=== PATIENT | female | born 1975 | race Caucasian/White ===

== ENCOUNTER 2017-01-24 10:09 | Emergency (ER) | payer MEDICAID, MEDICARE ==
[~2017-01-24] VITALS: Ht 152.4 cm; Wt 67.0 kg
[2017-01-24] MEDS ORDERED: MAGNESIUM/ALUMINUM HYDROXIDE/SIMETHICONE 30ML UDC PO STA (11:11)
[2017-01-24] MEDS ORDERED: ACETAMINOPHEN 325MG TABLET PO STA (11:11)
[2017-01-24] MEDS ORDERED: ONDANSETRON 4MG ODT PO STA (11:11)
[2017-01-24 11:27] LABS: BASOPHILS % 1.2 % (0.0-2.0); DIFFERENTIAL COMMENT 0; HEMATOCRIT. 36.9 % (36.0-48.0); HEMOGLOBIN. 12.3 g/dL (12.0-16.0); LYMPHOCYTES % 31.6 % (20.0-50.0); MEAN CORPUSCULAR HEMOGLOBIN 26.3 pg (28.0-32.0); MEAN CORPUSCULAR HGB CONC 33.3 g/dL (31.0-37.0); MEAN CORPUSCULAR VOLUME 78.9 fL (81.0-99.0); MEAN PLATELET VOLUME 8.7 fl (7.4-10.4); MONOCYTES % 7.2 % (2.0-8.0); PLATELET 260 x1000/uL (130-400); RED BLOOD CELL COUNT 4.68 mill/uL (4.2-5.4); RED CELL DISTRIBUTION WIDTH 14.6 % (11.6-14.6); WHITE BLOOD COUNT 8.4 x1000/uL (4.5-11.0)
[2017-01-24 11:29] LABS: CLARITY URINE CLEAR (CLEAR); COLOR URINE YELLOW (YELLOW); GLUCOSE URINE NEGATIVE (NEGATIVE); KETONES URINE TRACE (NEGATIVE); LEUKOCYTE ESTERASE URINE TRACE (NEGATIVE); NITRITE URINE NEGATIVE (NEGATIVE); OCCULT BLOOD URINE NEGATIVE (NEGATIVE); PH URINE 5.5 (4.5-8.0); PROTEIN URINE NEGATIVE (NEGATIVE); SPECIFIC GRAVITY URINE 1.028 (1.005-1.030); UROBILINOGEN URINE 0.2 E.U./dL (0.2-1.0)
[2017-01-24 11:34] LABS: PROTHROMBIN TIME 10.7 sec
[2017-01-24 11:42] LABS: ALANINE AMINOTRANSFERASE 18 IU/L (13-61); ANION GAP 11; CALCIUM 8.7 mg/dL (8.5-10.1); CARBON DIOXIDE 28 mEq/L (21-32); CHLORIDE 106 mEq/L (98-107); INDEX HEMOLYSI 1 (1-3); INDEX ICTERIC 1 (1-4); INDEX LIPEMIC 1 (1-3); LIPASE 171 IU/L (73-393); UREA NITROGEN BLOOD 14 mg/dL (7-21); eGFR > 60 mL/min (>60)
[2017-01-24 11:50] LABS: MUCUS URINE 1+ /lpf (< = 2+); SQUAMOUS EPITHELIAL CELL URINE 2+ /lpf (RARE/1+)
[2017-01-24 11:51] LABS: BACTERIA URINE TRACE; RBC URINE NONE SEEN /hpf (0-2); WBC URINE 0-2 /hpf (0-2)
[2017-01-24 12:11] LABS: HCG SCREEN NEGATIVE
[2017-01-24 13:02] VITALS: BP 112/74
== END 2017-01-24 13:02 | disposition home or self-care (01) ==
LOC: ER 11:33
DX: N39.0 Urinary tract infection, site not specified (principal); R10.13 Epigastric pain
CPT/HCPCS: 36415; 80053; 81001; 83690; 84703; 85025; 85610; 99284; Q0162

== ENCOUNTER 2017-11-03 18:54 | Emergency (ER) | payer MEDICARE, OTHER ==
[~2017-11-03] VITALS: Ht 152.4 cm; Wt 69.0 kg
[2017-11-03] MEDS ORDERED: LIDOCAINE HCL 1% 20ML VIAL (Pyxis) INJ MC ONE (19:15)
[2017-11-03] MEDS ORDERED: KETOROLAC 30MG/ML VIAL IM ONE (19:15)
[2017-11-03] MEDS ORDERED: TETANUS, DIPHTHERIA, PERTUSSIS VAC/PF 0.5ML (>7YR OLD) IM ONE (19:15)
[2017-11-03] MEDS ORDERED: BACITRACIN ZINC OINT UDPKT TOP ONE ×2 (19:15→21:45)
[2017-11-03 20:02] LABS: HCG SCREEN NEGATIVE
[2017-11-03 22:00] VITALS: BP 124/70
== END 2017-11-03 22:00 | disposition home or self-care (01) ==
LOC: ER 18:57
DX: S61.210A Laceration without foreign body of right index finger without damage to nail, initial encounter (principal); S61.212A Laceration without foreign body of right middle finger without damage to nail, initial encounter; S61.214A Laceration without foreign body of right ring finger without damage to nail, initial encounter; S61.216A Laceration without foreign body of right little finger without damage to nail, initial encounter; W26.0XXA Contact with knife, initial encounter; Y93.G3 Activity, cooking and baking; Y92.000 Kitchen of unspecified non-institutional (private) residence as the place of occurrence of the external cause; Y99.8 Other external cause status
CPT/HCPCS: 12002; 73110; 73130; 84703; 90471; 90715; 96372; 99285; J1885; J3490; Z7610

== ENCOUNTER 2017-11-05 07:57 | Emergency (ER) | payer OTHER ==
[~2017-11-05] VITALS: Ht 152.4 cm; Wt 69.0 kg
[2017-11-05 08:59] VITALS: BP 109/76
[2017-11-05] MEDS ORDERED: BACITRACIN ZINC OINT UDPKT TOP ONE (10:30)
== END 2017-11-05 12:38 | disposition home or self-care (01) ==
LOC: ER 08:13
DX: Z48.00 Encounter for change or removal of nonsurgical wound dressing (principal); T80.62XA Other serum reaction due to vaccination, initial encounter; T50.A15A Adverse effect of pertussis vaccine, including combinations with a pertussis component, initial encounter; Y92.099 Unspecified place in other non-institutional residence as the place of occurrence of the external cause
CPT/HCPCS: 99282

== ENCOUNTER 2017-11-13 07:49 | Emergency (ER) | payer SELFPAY ==
[~2017-11-13] VITALS: Ht 152.4 cm; Wt 69.0 kg
[2017-11-13 08:05] VITALS: BP 108/72
== END 2017-11-13 10:55 | disposition home or self-care (01) ==
LOC: ER 08:32
DX: Z48.02 Encounter for removal of sutures (principal)
CPT/HCPCS: 99282; Z7610